=== PATIENT | male | born 1950 | race Caucasian/White ===

== ENCOUNTER 2016-07-25 06:38 | Day surgery (SDC) | payer MEDICARE ==
[~2016-07-25] VITALS: Ht 180.3 cm; Wt 96.0 kg
[~2016-07-25 06:38] MED LIST: ASPIRIN PO; NAPR220T77 PO; NONE PER PT
[2016-07-25] MEDS ORDERED: GABAPENTIN 300 MG CAPSULE PO STA (07:25)
[2016-07-25] MEDS ORDERED: ACETAMINOPHEN 500 MG TABLET PO STA (07:25)
[2016-07-25] MEDS ORDERED: LACTATED RINGERS 1,000 ML IV SCH ×2 (07:27→07:34)
[2016-07-25] MEDS ORDERED: FENTANYL PF 250 MCG/5ML ONE (07:29)
[2016-07-25] MEDS ORDERED: MIDAZOLAM 1 MG/ML, 2ML ONE (07:29)
[2016-07-25 07:31] VITALS: BP 145/76
[2016-07-25] MEDS ORDERED: ASPI325T80 PO (07:35)
[2016-07-25] MEDS ORDERED: DEXAMETHASONE 4 MG/ML, 1ML ONE (07:45)
[2016-07-25] MEDS ORDERED: PHENYLEPHRINE 10 MG/ML ONE (07:45)
[2016-07-25] MEDS ORDERED: CEFAZOLIN 1,000 MG ONE (07:45)
[2016-07-25] MEDS ORDERED: ONDANSETRON 2MG/ML, 2ML ONE (07:45)
[2016-07-25] MEDS ORDERED: SUCCINYLCHOLINE 20 MG/ML, 10ML ONE (07:45)
[2016-07-25] MEDS ORDERED: ROCURONIUM 10 MG/ML ONE (07:45)
[2016-07-25] MEDS ORDERED: PROPOFOL 10 MG/ML, 20ML ONE (07:45)
[2016-07-25] MEDS ORDERED: EPHEDRINE 50 MG/ML, 1ML ONE (07:45)
[2016-07-25] MEDS ORDERED: KETOROLAC 30 MG/1 ML ONE (07:45)
[2016-07-25] MEDS ORDERED: OXYcodone/APAP 5/325MG TABLET PO PRN (08:00)
[2016-07-25] MEDS ORDERED: HYDROmorphone 2 MG/ML, 1ML IVPush PRN (08:00)
[2016-07-25] MEDS ORDERED: RHOGAM FROM BLOOD BANK 1 NOTE EA IM/IV ONE (08:00)
[2016-07-25] MEDS ORDERED: ONDANSETRON 2MG/ML, 2ML IVPush PRN ×2 (08:00→08:30)
[2016-07-25] MEDS ORDERED: DIPHENHYDRAMINE 50 MG/ML, 1ML IVPush PRN (08:00)
[2016-07-25] MEDS ORDERED: ACETAMINOPHEN 325 MG TABLET PO PRN (08:30)
[2016-07-25] MEDS ORDERED: MEPERIDINE/PF 25MG/0.5ML IVPush PRN (08:30)
[2016-07-25] MEDS ORDERED: HYDROmorphone 1 MG/ML, 1ML IV PRN (08:30)
[2016-07-25] MEDS ORDERED: MIDAZOLAM 1 MG/ML, 2ML IV PRN (08:30)
[2016-07-25] MEDS ORDERED: hydrALAzine 20 MG/ML, 1ML IV PRN (08:30)
[2016-07-25] MEDS ORDERED: PROMETHAZINE 25 MG/ML, 1ML IV PRN (08:30)
[2016-07-25] MEDS ORDERED: LABETALOL 5MG/ML, 20ML IV PRN (08:30)
[2016-07-25] MEDS ORDERED: OXYcodone 5 MG/5 ML ORAL.SOL UDC PO PRN (08:30)
[2016-07-25] MEDS ORDERED: METOCLOPRAMIDE 5 MG/ML, 2ML IV PRN (08:30)
[2016-07-25] MEDS ORDERED: FENTANYL PF 100 MCG/2ML IV PRN (08:30)
[2016-07-25] MEDS ORDERED: OXYcodone 5 MG/5 ML ORAL.SOL UDC ONE (09:24)
== END 2016-07-25 10:55 | disposition home or self-care (01) ==
LOC: OUT 06:38
PROVIDERS: ATTEND Surgery
DX: E04.2 Nontoxic multinodular goiter (principal); K21.9 Gastro-esophageal reflux disease without esophagitis; Z99.81 Dependence on supplemental oxygen; M19.90 Unspecified osteoarthritis, unspecified site; Z87.891 Personal history of nicotine dependence; Z72.89 Other problems related to lifestyle; E66.9 Obesity, unspecified; Z68.29 Body mass index [BMI] 29.0-29.9, adult
CPT/HCPCS: 60220; 88307; 95865; 95940; C1760; J0330; J0690; J1100; J1885; J2250; J2370; J2405; J2704; J3010; J7120